=== PATIENT | male | born 1960 | race Caucasian/White ===

== ENCOUNTER 2022-08-06 12:15 | Emergency (ER) | payer BC ==
[2022-08-06] MEDS ORDERED: Lidocaine 1% 5 ML VIAL INJECT ONE (12:17)
[2022-08-06] MEDS ORDERED: Bacitracin Oint 1 GM U/D Packet TOP ONE (12:17)
== END 2022-08-06 13:37 | disposition home or self-care (01) ==
LOC: JP.ED 12:15
DX: S67.197A Crushing injury of left little finger, initial encounter (principal); S61.217A Laceration without foreign body of left little finger without damage to nail, initial encounter; W23.1XXA Caught, crushed, jammed, or pinched between stationary objects, initial encounter
CPT/HCPCS: 12001; 73140-26-F4; 73140-F4; 99283